=== PATIENT | male | born 1965 | race African-American/Black ===

== ENCOUNTER → 2016-12-13 | Outpatient (CLI) | payer OTHER ==
--- NOTE | 2016-12-13 10:37 | RAD ---
Indication: Back pain. Time of exam 10:24 AM AP and lateral views of the lumbar spine were obtained. Curvature and alignment is normal. The vertebral body heights are well-maintained. No acute compression fracture is seen. There is generalized degenerative disc disease with variable disc space narrowing. There is marginal osteophyte formation noted T12-L1 and L3-4 levels. Impression: Lumbar spondylosis. No acute bony abnormality is detected.
== END | disposition home or self-care (01) ==
LOC: RAD 09:39
PROVIDERS: ATTEND Surgery
DX: M47.896 Other spondylosis, lumbar region (principal); M51.36 Other intervertebral disc degeneration, lumbar region
CPT/HCPCS: 72100

== ENCOUNTER 2019-02-25 12:46 | Emergency (ER) | payer SELFPAY ==
[~2019-02-25] VITALS: Ht 179.1 cm; Wt 96.8 kg
[2019-02-25 13:13] VITALS: BP 124/76
--- NOTE | 2019-02-25 13:25 | PHYS DOC ---
Past Medical History Past Medical History: High Cholesterol, Hypertension Past Surgical History: No Surgical History Alcohol Use: Occasionally Drug Use: None Adult General Chief Complaint Chief Complaint: BACK PAIN - NO INJURY HPI HPI Patient is a 53 year old male who presents with left neck pain that is sharp and shooting into the left shoulder and goes down into the left elbow. Patient states he also has left lumbar pain. Patient states these are chronic pains that he's had for months but over the last 3 weeks is gotten worse. 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 Patient states he is not currently working has not been doing any heavy lifting recently. Patient states the pain usually would come and go but now it seems more constant. Patient rates his pain a 8 out of 10. Review of Systems Review of Systems Constitutional: Denies fever or chills [] Musculoskeletal: Sided neck into left shoulder down left humerus, Low back back pain or joint pain [] Integument: Denies rash or skin lesions [] Neurologic: Denies headache, focal weakness or sensory changes [] All other systems were reviewed and found to be within normal limits, except as documented in this note. Physical Exam Physical Exam Constitutional: Well developed, well nourished, no acute distress, non-toxic appearance. [] Eyes: PERRLA, EOMI, conjunctiva normal, no discharge. [] Neck: Normal range of motion, left neck into trapezius tenderness, supple, no stridor. [] Skin: Warm, dry, no erythema, no rash. [] Back: No tenderness, no CVA tenderness. [] Extremities: No tenderness, no cyanosis, no clubbing, left shoulder ROM intact but painful, no edema. [] Neurologic: Alert and oriented X 3, normal motor function, normal sensory function, no focal deficits noted. [] Psychologic: Affect normal, judgement normal, mood normal. [] Current Patient Data Vital Signs Vital Signs Date Time Temp Pulse Resp B/P (MAP) Pulse Ox O2 Delivery O2 Flow Rate FiO2 02/25/19 13:13 98.4 94 16 124/76 (92) 96 Room Air 98.4 EKG EKG [] Radiology/Procedures Radiology/Procedures [] Impressions: [facility] [address] [place], [place] [id number] IMAGING REPORT Signed PATIENT: LAKEISHA DOVE ACCOUNT: [id number] : 1965 LOCATION: ER AGE: 53 SEX: M EXAM STATUS: REG ER ORD. PHYSICIAN: TATYANA GOINS APRN REASON: pain PROCEDURE: CT CERVICAL SPINE WO CONTRAST CT study of the cervical spine without contrast Clinical indications: Neck pain. TECHNIQUE: Noncontrast helical CT scanning of the cervical spine was performed. Multiplanar 2-D reconstructions were generated. PQRS compliance Statement One or more of the following individualized dose reduction techniques were utilized for this study: 1. Automated exposure control 2. Adjustment of the mA and/or kV according to patient size 3. Use of iterative reconstruction technique COMPARISON: None available. FINDINGS: No radiolucent fracture line is evident. No lytic process or discitis is evident. Degenerative facet arthropathy is evident. No perching of facet joints is seen. At C2-3, mild diffuse disc protrusion is seen. Mild degenerative endplate spurring is seen. This narrows the AP dimension of the spinal canal down to 11 mm in the AP midline. No significant neural foraminal narrowing is seen. At C3-4, mild diffuse disc protrusion is seen. This narrows the AP dimension of the spinal canal down to 9 mm within the AP midline. No significant narrowing of the neural foramina is evident. At C4-5, retrolisthesis is seen which measures 4 mm. There is mild diffuse disc protrusion and mild degenerative endplate spurring at this level. This narrows the AP dimension of the spinal canal more so towards the left side. There is a moderate spinal canal stenosis as a result. The AP dimension within the midline is 6 mm and the AP dimension on the left side of the spinal canal is 4 mm. There is narrowing of the left lateral recess. There is severe narrowing of the left neural foramen and moderate narrowing of the right neural foramen at this level. At C5-6, mild degenerative endplate spurring is seen. No significant spinal canal stenosis is evident. There is mild narrowing of the neural foramina bilaterally. At C6-7, mild degenerative endplate spurring and diffuse disc protrusion is seen worse on the left side. This narrows the AP dimension of the spinal canal down to 9 mm in the midline and down to 6 mm within the left side of the spinal canal. There is narrowing of the left lateral recess. There is moderate narrowing of the left neural foramen. At C7-T1, no significant focal disc protrusion or spinal canal stenosis or neural foraminal narrowing is seen. However, there is significant streaking artifact which does partially obscured the spinal canal at this level. IMPRESSION: No acute fracture. Degenerative cervical spondylosis with multilevel spinal canal stenosis and neural foraminal narrowing as discussed above. See discussion above for each level. Electronically signed by: May Mcdowell MD (02/25/2019 1:53 PM) [facility] DICTATED and SIGNED BY: MYA MCDOWELL MD DATE: 02/25/[address] [place] [id number] IMAGING REPORT Signed PATIENT: LAKEISHA DOVE ACCOUNT: [id number] : 1965 LOCATION: ER AGE: 53 SEX: M EXAM STATUS: REG ER ORD. PHYSICIAN: TATYANA GOINS APRN REASON: left shoulder pain, no known injury PROCEDURE: SHOULDER 2+V LEFT EXAM: 3 views left shoulder DATE: 02/25/2019 1:19 PM INDICATION: Left shoulder pain, no known injury COMPARISON: No Prior FINDINGS/ IMPRESSION: 1. Mortise calcifications are seen at the rotator cuff attachment to the greater tuberosity which may be seen with calcific tendinitis. 2. Glenohumeral joint osteoarthritis with small inferior projecting osteophytes. 3. Mild AC joint degenerative change with small associated osteophytes. 4. No evidence of acute fracture or dislocation. Electronically signed by: Jonh Valdes MD (02/25/2019 1:59 PM) [facility] DICTATED and SIGNED BY: JONH VALDES MD DATE: 02/25/[address] [place] [id number] IMAGING REPORT Signed PATIENT: LAKEISHA DOVE ACCOUNT: [id number] : 1965 LOCATION: ER AGE: 53 SEX: M EXAM STATUS: REG ER ORD. PHYSICIAN: TATYANA GOINS APRN REASON: pain PROCEDURE: CT LUMBAR SPINE WO CONTRAST Examination: CT LUMBAR SPINE WO CONTRAST History: Pain Comparison/Correlation: None Findings: Axial images of the lumbar spine were obtained without contrast. Sagittal and coronal reformatted images were provided. Alignment of the lumbar spine is normal. Vertebral body heights are adequate. T12-L1: Unremarkable L1-L2: unremarkable L2-L3: Mild concentric disc bulge with thecal sac effacement and ligamentum flavum hypertrophy with mild spinal canal stenosis. L3-4: Concentric disc bulge, facet joint degenerative hypertrophy, ligamentum flavum hypertrophy. Severe spinal canal stenosis. Mild effacement of the proximal left exiting nerve root. L4-5: Concentric disc bulge, facet joint degenerative hypertrophy, ligamentum flavum hypertrophy, and severe spinal canal stenosis. No definite nerve root effacement. L5-S1: Unremarkable Alignment of the lumbar spine is unremarkable. Bony mineralization is adequate. No fracture or bony destruction. Retroperitoneal soft tissues are unremarkable. Impression: Concentric disc bulge at L3-4 and L4-5 are notable with severe spinal canal stenosis. Left exiting L3-4 nerve root effacement noted. PQRS Compliance Statement: One or more of the following individualized dose reduction techniques were utilized for this examination: 1. Automated exposure control 2. Adjustment of the mA and/or kV according to patient size 3. Use of iterative reconstruction technique Electronically signed by: Dominic Davis MD (02/25/2019 2:06 PM) [facility] DICTATED and SIGNED BY: DOMINIC DAVIS MD DATE: 02/25/19 1406 Course & Med Decision Making Course & Med Decision Making Patient is a 53 year old male who presents with left neck pain that is sharp and shooting into the left shoulder and goes down into the left elbow. Patient states he also has left lumbar pain. Patient states these are chronic pains that he's had for months but over the last 3 weeks is gotten worse. 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 Patient states he is not currently working has not been doing any heavy lifting recently. Patient states the pain usually would come and go but now it seems more constant. Patient rates his pain a 8 out of 10. Patient has no focal bony spinal tenderness. Patient's left neck is tender to palpation down into the trapezius. Patient states it is painful to lift his shoulder above shoulder height. There is no tenderness to the back with palpation. Patient denies any visual changes, chest pain, shortness of air, dizziness, syncope, numbness or tingling, weakness. Alert and oriented. Ambulatory with steady gait. Speaks in full clear sentences. Radial pulses strong and present. No extremity swelling. Skin pink, warm and dry. Cap refill < 3 seconds. 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 Patient states he is wanting x-rays and or CT scans. Patient is told this is likely to be muscle related. Patient denies any injury or traumas. Patient is notified that likely x-ray will not show anything but may show arthritis but that his pain is muscle and nerve related. Patient states he still once to be xrayed or scanned. PERRLA. Patient has range of motion of his left shoulder but is painful. No deformity to any joints or swelling. No deformity to the extremity. CT scan showed Degenerative cervical spondylosis with multilevel spinal canal stenosis and neural foraminal narrowing as discussed above. See discussion above for each level. Shoulder xray shows: 1. Mortise calcifications are seen at the rotator cuff attachment to the greater tuberosity which may be seen with calcific tendinitis. 2. Glenohumeral joint osteoarthritis with small inferior projecting osteophytes. 3. Mild AC joint degenerative change with small associated osteophytes. 4. No evidence of acute fracture or dislocation. Lumbar CT shows: Concentric disc bulge at L3-4 and L4-5 are notable with severe spinal canal stenosis. Left exiting L3-4 nerve root effacement noted. Dragon Disclaimer Dragon Disclaimer This electronic medical record was generated, in whole or in part, using a voice recognition dictation system. Departure Departure Impression: Primary Impression: Cervical radiculopathy Additional Impressions: Shoulder pain Low back pain Disposition: 01 HOME, SELF-CARE Condition: STABLE Referrals: UNKNOWN PCP NAME (PCP) CLAUDINE TARANGO MD Patient Instructions: Arthritis, Degenerative-Brief, Cervical Radiculopathy, Spinal Stenosis Additional Instructions: Follow up with primary care provider. Take medications as prescribed. Scripts Methylprednisolone (MEDROL) 4 Mg Tab.ds.pk 1 PKG PO UD, #1 PKG Prov: TATYANA GOINS ZYGLO INSPECTOR 9/9/19 Hydrocodone/Apap 5-325 (NORCO 5-325 TABLET) 1 Each Tablet 1 TAB PO PRN Q6HRS PRN for PAIN, #10 TAB 0 Refills Prov: TATYANA GOINS APRN 02/25/19 Problem Qualifiers Additional Impressions: Shoulder pain Chronicity: acute Laterality: left Qualified Codes: M25.512 - Pain in left shoulder Low back pain Chronicity: acute Back pain laterality: left Sciatica presence: without sciatica Qualified Codes: M54.5 - Low back pain TATYANA GOINS APRN Feb 25, 2019 13:25
--- NOTE | 2019-02-25 13:56 | RAD ---
CT study of the cervical spine without contrast Clinical indications: Neck pain. TECHNIQUE: Noncontrast helical CT scanning of the cervical spine was performed. Multiplanar 2-D reconstructions were generated. PQRS compliance Statement One or more of the following individualized dose reduction techniques were utilized for this study: 1. Automated exposure control 2. Adjustment of the mA and/or kV according to patient size 3. Use of iterative reconstruction technique COMPARISON: None available. FINDINGS: No radiolucent fracture line is evident. No lytic process or discitis is evident. Degenerative facet arthropathy is evident. No perching of facet joints is seen. At C2-3, mild diffuse disc protrusion is seen. Mild degenerative endplate spurring is seen. This narrows the AP dimension of the spinal canal down to 11 mm in the AP midline. No significant neural foraminal narrowing is seen. At C3-4, mild diffuse disc protrusion is seen. This narrows the AP dimension of the spinal canal down to 9 mm within the AP midline. No significant narrowing of the neural foramina is evident. At C4-5, retrolisthesis is seen which measures 4 mm. There is mild diffuse disc protrusion and mild degenerative endplate spurring at this level. This narrows the AP dimension of the spinal canal more so towards the left side. There is a moderate spinal canal stenosis as a result. The AP dimension within the midline is 6 mm and the AP dimension on the left side of the spinal canal is 4 mm. There is narrowing of the left lateral recess. There is severe narrowing of the left neural foramen and moderate narrowing of the right neural foramen at this level. At C5-6, mild degenerative endplate spurring is seen. No significant spinal canal stenosis is evident. There is mild narrowing of the neural foramina bilaterally. At C6-7, mild degenerative endplate spurring and diffuse disc protrusion is seen worse on the left side. This narrows the AP dimension of the spinal canal down to 9 mm in the midline and down to 6 mm within the left side of the spinal canal. There is narrowing of the left lateral recess. There is moderate narrowing of the left neural foramen. At C7-T1, no significant focal disc protrusion or spinal canal stenosis or neural foraminal narrowing is seen. However, there is significant streaking artifact which does partially obscured the spinal canal at this level. IMPRESSION: No acute fracture. Degenerative cervical spondylosis with multilevel spinal canal stenosis and neural foraminal narrowing as discussed above. See discussion above for each level. Electronically signed by: Omid Mcdowell MD (02/25/2019 1:53 PM) [place] [id number]
--- NOTE | 2019-02-25 14:01 | RAD ---
EXAM: 3 views left shoulder DATE: 02/25/2019 1:19 PM INDICATION: Left shoulder pain, no known injury COMPARISON: No Prior FINDINGS/ IMPRESSION: 1. Mortise calcifications are seen at the rotator cuff attachment to the greater tuberosity which may be seen with calcific tendinitis. 2. Glenohumeral joint osteoarthritis with small inferior projecting osteophytes. 3. Mild AC joint degenerative change with small associated osteophytes. 4. No evidence of acute fracture or dislocation. Electronically signed by: Jonh Freitas MD (02/25/2019 1:59 PM) [facility]
--- NOTE | 2019-02-25 14:09 | RAD ---
Examination: CT LUMBAR SPINE WO CONTRAST History: Pain Comparison/Correlation: None Findings: Axial images of the lumbar spine were obtained without contrast. Sagittal and coronal reformatted images were provided. Alignment of the lumbar spine is normal. Vertebral body heights are adequate. T12-L1: Unremarkable L1-L2: unremarkable L2-L3: Mild concentric disc bulge with thecal sac effacement and ligamentum flavum hypertrophy with mild spinal canal stenosis. L3-4: Concentric disc bulge, facet joint degenerative hypertrophy, ligamentum flavum hypertrophy. Severe spinal canal stenosis. Mild effacement of the proximal left exiting nerve root. L4-5: Concentric disc bulge, facet joint degenerative hypertrophy, ligamentum flavum hypertrophy, and severe spinal canal stenosis. No definite nerve root effacement. L5-S1: Unremarkable Alignment of the lumbar spine is unremarkable. Bony mineralization is adequate. No fracture or bony destruction. Retroperitoneal soft tissues are unremarkable. Impression: Concentric disc bulge at L3-4 and L4-5 are notable with severe spinal canal stenosis. Left exiting L3-4 nerve root effacement noted. PQRS Compliance Statement: One or more of the following individualized dose reduction techniques were utilized for this examination: 1. Automated exposure control 2. Adjustment of the mA and/or kV according to patient size 3. Use of iterative reconstruction technique Electronically signed by: Dominic Villegas MD (02/25/2019 2:06 PM) [facility]
[2019-02-25] MEDS ORDERED: METH4TAB2 PO (14:12)
[2019-02-25] MEDS ORDERED: HYDR-3164 PO (14:12)
== END 2019-02-25 14:24 | disposition home or self-care (01) ==
LOC: ER 12:46
DX: M54.12 Radiculopathy, cervical region (principal); M25.512 Pain in left shoulder; M54.5 Low back pain; G89.29 Other chronic pain; E78.00 Pure hypercholesterolemia, unspecified; I10 Essential (primary) hypertension
CPT/HCPCS: 72125; 72131; 73030; 99284

== ENCOUNTER 2020-11-23 12:42 | Emergency (ER) | payer MEDICAID ==
[~2020-11-23] VITALS: Ht 180.3 cm; Wt 100.0 kg
[~2020-11-23 12:42] MED LIST: HYDR-3164 PO; METH4TAB2 PO
[2020-11-23 14:51] VITALS: BP 152/89
--- NOTE | 2020-11-23 15:27 | RAD ---
EXAM: 1. CERVICAL SPINE 3 VIEWS. 2. LEFT SHOULDER 3 VIEWS. HISTORY: Neck and left shoulder pain. COMPARISON: 03/07/2019. FINDINGS: Retrolisthesis at C4-5 measures 5 mm. It measures <2 mm at C5-6. No fractures are identifie d. There is no prevertebral soft tissue swelling. Degenerative disc disease is moderate at C4-5 and m ild at C5-6. C7-T1 is not well visualized. Bilateral carotid atherosclerotic calcifications are noted . No fractures are identified at the left shoulder. Left glenohumeral osteoarthritis is mild. Acromiocl avicular osteoarthritis appears moderate. Inferiorly directed clavicular spurs measure up to 4 mm. Th ere is calcification at the rotator cuff insertion, consistent with calcific tendinitis. IMPRESSION: 1. Chronic 5 mm retrolisthesis at C4-5 is likely degenerative. This results in a component of central canal stenosis, which could be better assessed with MRI. 2. Degenerative disc disease is moderate to severe at C4-5 and mild at C3-4. 3. Findings consistent with calcific tendinitis of the left rotator cuff insertion. 4. Acromioclavicular osteoarthritis is moderate with inferiorly directed spurring suggesting impingem ent. 5 mild glenohumeral osteoarthritis. Electronically signed by: Beena Dickson MD (11/23/2020 3:25 PM) [id number]
[2020-11-23] MEDS ORDERED: CYCL10TA2 PO (15:48)
[2020-11-23] MEDS ORDERED: GABA300C18 PO (15:48)
[2020-11-23] MEDS ORDERED: DICL50TA2 PO (15:48)
--- NOTE | 2020-11-23 15:53 | PHYS DOC ---
Past Medical History Past Medical History: High Cholesterol, Hypertension Past Surgical History: No Surgical History Smoking Status: Never Smoker Alcohol Use: Occasionally Drug Use: None General Adult EDM: Chief Complaint: HAND PROBLEM HPI: HPI: Patient is a 55 year old male with history of diabetes type 2, hypertension, who presents to the ED today complaining of 7 out of 10 neck pain radiating to bilateral upper extremities, symptoms of been going on for 2 months. Patient is also complaining of occasional numbness and tingling to the right fingers. 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 States the symptoms could be related to a pinched nerve but would like an x-ray to make sure that is the case. Patient denies any chest pain or shortness of breath. Denies any headache. Review of Systems: Review of Systems: Constitutional: Denies fever or chills. [] Eyes: Denies change in visual acuity. [] HENT: Denies nasal congestion or sore throat. [] Respiratory: Denies cough or shortness of breath. [] Cardiovascular: Denies chest pain or edema. [] GI: Denies abdominal pain, nausea, vomiting, bloody stools or diarrhea. [] : Denies dysuria. [] Musculoskeletal: Reports neck pain radiating to bilateral upper extremities. Reports numbness and tingling to the right hand. Integument: Denies rash. [] Neurologic: Denies headache, focal weakness or sensory changes. [] Psychiatric: Denies depression or anxiety. [] Heart Score: C/O Chest Pain: N/A Risk Factors: Risk Factors: DM, Current or recent (<one month) smoker, HTN, HLP, family history of CAD, obesity. Risk Scores: Score 0 - 3: 2.5% MACE over next 6 weeks - Discharge Home Score 4 - 6: 20.3% MACE over next 6 weeks - Admit for Clinical Observation Score 7 - 10: 72.7% MACE over next 6 weeks - Early Invasive Strategies Allergies: Allergies: Allergies Coded Allergies Type Severity Reaction Last Updated Verified No Known Drug Allergies 11/23/20 No Physical Exam: PE: Constitutional: Well developed, well nourished, no acute distress, non-toxic appearance. [] HENT: Normocephalic, atraumatic, bilateral external ears normal, oropharynx moist, no oral exudates, nose normal. [] Eyes: PERRLA, EOMI, conjunctiva normal, no discharge. [] Neck: Normal range of motion, no tenderness, supple, no stridor. [] Cardiovascular:Heart rate regular rhythm, no murmur [] Lungs & Thorax: Bilateral breath sounds clear to auscultation [] Abdomen: Bowel sounds normal, soft, no tenderness, no masses, no pulsatile masses. [] Skin: Warm, dry, no erythema, no rash. [] Back: No tenderness, no CVA tenderness. [] Extremities: No tenderness, no cyanosis, no clubbing, ROM intact, no edema. [] Neurologic: Alert and oriented X 3, normal motor function, normal sensory function, no focal deficits noted. [] Psychologic: Very talkative. Current Patient Data: Vital Signs: Vital Signs Date Time Temp Pulse Resp B/P (MAP) Pulse Ox O2 Delivery O2 Flow Rate FiO2 11/23/20 14:51 97.4 86 16 152/89 (110) 99 Room Air 97.4 EKG: EKG: [] Radiology/Procedures: Radiology/Procedures: [] Course & Med Decision Making: Course & Med Decision Making Pertinent Labs and Imaging studies reviewed. (See chart for details) This is a very talkative 55-year-old male patient presenting to the ED today co mplaining of neck pain radiating to bilateral upper extremities with numbness and tingling to the right hand. Requesting x-rays. X-ray of the cervical spine was noted for DJD with cervical stenosis. Left shoulder x-ray was noted for tendinitis. Also noted for arthritis. Also noted for impingement syndrome. Discharged home. Follow-up with PCP. Zoila Disclaimer: Zoila Disclaimer: This electronic medical record was generated, in whole or in part, using a voice recognition dictation system. Departure Departure Impression: Primary Impression: Cervical radiculopathy Additional Impressions: Shoulder pain Qualified Codes: M25.512 - Pain in left shoulder Arthritis of left shoulder region Tendinitis of left shoulder DJD (degenerative joint disease) of cervical spine Qualified Codes: M47.812 - Spondylosis without myelopathy or radiculopathy, cervical region Disposition: 01 HOME / SELF CARE / HOMELESS Condition: STABLE Referrals: UNKNOWN PCP NAME (PCP) MISHEL BRAGG MD Follow-up for neck pain LAKEISHA RICK MD Follow-up for shoulder pain Patient Instructions: Arthritis, Degenerative-Brief, Cervical Radiculopathy, Shoulder Pain, [id number] Additional Instructions: You were evaluated in the emergency room and noted to have arthritis in your neck with stenosis, you have arthritis in your shoulder, tendinitis in the left shoulder, and impingement symptoms of the shoulder. This needs to be followed up with the provided orthopedic doctor. We provided you neurosurgeon for follow-up for neck pain. Consider icing and elevating the affected areas. Take the prescribed medications as ordered. Scripts Diclofenac Potassium (DICLOFENAC POTASSIUM) 50 Mg Tablet 1 TAB PO BID, #20 TAB 1 Refill Prov: PONCHO DODSON APRN 11/23/20 Cyclobenzaprine Hcl (CYCLOBENZAPRINE HCL) 10 Mg Tablet 1 TAB PO TID, #30 TAB Prov: PONCHO DODSON APRN 11/23/20 Gabapentin (GABAPENTIN ) 300 Mg Capsule 300 MG PO TID for NEUROGENIC PAIN, #20 CAP Prov: PONCHO DODSON APRN 11/23/20 PONCHO DODSON APRN Nov 23, 2020 15:53
== END 2020-11-23 16:13 | disposition home or self-care (01) ==
LOC: ER 12:42
DX: M54.12 Radiculopathy, cervical region (principal); M19.012 Primary osteoarthritis, left shoulder; M77.8 Other enthesopathies, not elsewhere classified; M47.892 Other spondylosis, cervical region; E78.00 Pure hypercholesterolemia, unspecified; I10 Essential (primary) hypertension
CPT/HCPCS: 72040; 73030; 99284